=== PATIENT | female | born 1995 | race Caucasian/White ===

== ENCOUNTER 2016-04-10 12:54 | Observation (INO) | payer SELFPAY ==
[~2016-04-10] VITALS: Ht 172.7 cm; Wt 100.0 kg
[2016-04-10] VITALS (7 sets, daily range): BP systolic 116–134; BP diastolic 58–89; PULSE 85–99; RESP 14–20; TEMP 97.9–98; O2SAT 97–100
--- NOTE | 2016-04-10 13:49 | PD ---
HPI Chief Complaint: Chest Pain Time Seen by Provider: 13:48 Travel History International Travel<30 days: No Contact w/Intl Traveler<30days: No Traveled to known affect area: No History of Present Illness HPI 21 year old female presents to the ED for evaluation of 10 day history of palpitations and left-sided chest discomfort, radiating into the left shoulder and fingers of the left hand. Patient states this discomfort is constant. However, she states that she has had a few episodes of accompanying diaphoresis , weakness and shortness of breath over the last few days. Episodes lasting approximately 5 minutes, resolving on their own. No alleviating or exacerbating factors reported. Patient endorses a history of SVT at age 13 years. Denies familial history of long QT, Brugada's or WPW. 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 She is a current smoker, denies illicit drug use. PFSH Past Medical History Asthma: Yes Cardiovascular Problems: Yes (SVT AT AGE 13) Diabetes: Yes (GESTATIONAL) Patient Takes Glucophage: No Diminished Hearing: No Endocrine: Yes (HYPOGLYCEMIA) Gestational Age in Weeks: 14 Immunizations Current: Yes ?: Not LMP: 04/05/16 : 4 Para: 3 Miscarriage: 1 : 0 Past Surgical History Surgical History: No Previous Surgery Section: No Social History Alcohol Use: Yes (social) Tobacco Use: Yes (1/2 pack day) Substance Use: No Allergies-Medications (Allergen,Severity, Reaction): Coded Allergies: Biaxin (Verified Allergy, Mild, HIVES, 04/10/16) *MDRO Multi-Drug Resistant Organism (Verified Adverse Reaction, Unknown, ) MRSA arm 11/2010. MRSA PCR Screen negative 09/30/14. Reported Meds & Prescriptions Reported Meds & Active Scripts Active No Active Prescriptions or Reported Medications Review of Systems Except as stated in HPI: all other systems reviewed are Neg Physical Exam Narrative GENERAL: Well-nourished, well-developed white female in no acute distress. SKIN: Warm and dry. HEAD: Normocephalic. EYES: No scleral icterus. No injection or drainage. NECK: Supple, trachea midline. No JVD or lymphadenopathy. CARDIOVASCULAR: Regular rate and rhythm without murmurs, gallops, or rubs. 2+ DP and radial pulses bilaterally. RESPIRATORY: Breath sounds clear and equal bilaterally. No accessory muscle use. GASTROINTESTINAL: Abdomen soft, non-tender, nondistended. Active bowel sounds. MUSCULOSKELETAL: No cyanosis, or edema. Patient is ambulatory and moves the extremities spontaneously. NEUROLOGICAL: Awake and alert. Cranial nerves II through XII intact. Motor and sensory grossly within normal limits. 5/5 muscle strength in all muscle groups. Normal speech. BACK: Nontender without obvious deformity. No CVA tenderness. Data Data Last Documented VS Vital Signs Date Time Temp Pulse Resp B/P Pulse Ox O2 Delivery O2 Flow Rate FiO2 04/10/16 14:05 127/84 121/78 04/10/16 14:05 18 97 Room Air 04/10/16 13:44 98 04/10/16 12:55 98.0 Orders Electrocardiogram (04/10/16 13:56) Basic Metabolic Panel (Bmp) (04/10/16 13:56) Ckmb (Isoenzyme) Profile (04/10/16 13:56) Complete Blood Count With Diff (04/10/16 13:56) Magnesium (Mg) (04/10/16 13:56) Prothrombin Time / Inr (Pt) (04/10/16 13:56) Act Partial Throm Time (Ptt) (04/10/16 13:56) Troponin I (04/10/16 13:56) Chest, Single Ap (04/10/16 13:56) Ecg Monitoring (04/10/16 13:56) Bilateral Bp Monitoring (04/10/16 13:56) Iv Access Insert/Monitor (04/10/16 13:56) Oximetry (04/10/16 13:56) Aspirin (Aspirin) (04/10/16 14:00) Sodium Chloride 0.9% Flush (Ns Flush) (04/10/16 14:00) Ed Urine Pregnancytest Poc (04/10/16 13:56) Admit Order (Ed Use Only) (04/10/16 15:14) Labs Laboratory Tests Test 04/10/16 14:00 White Blood Count 7.5 TH/MM3 Red Blood Count 4.17 MIL/MM3 Hemoglobin 11.0 GM/DL Hematocrit 33.3 % Mean Corpuscular Volume 79.9 FL Mean Corpuscular Hemoglobin 26.5 PG Mean Corpuscular Hemoglobin 33.1 % Concent Red Cell Distribution Width 15.2 % Platelet Count 241 TH/MM3 Mean Platelet Volume 8.2 FL Neutrophils (%) (Auto) 73.1 % Lymphocytes (%) (Auto) 22.1 % Monocytes (%) (Auto) 4.3 % Eosinophils (%) (Auto) 0.3 % Basophils (%) (Auto) 0.2 % Neutrophils # (Auto) 5.5 TH/MM3 Lymphocytes # (Auto) 1.6 TH/MM3 Monocytes # (Auto) 0.3 TH/MM3 Eosinophils # (Auto) 0.0 TH/MM3 Basophils # (Auto) 0.0 TH/MM3 CBC Comment DIFF FINAL Differential Comment Prothrombin Time 10.8 SEC Prothromb Time International 1.0 RATIO Ratio Activated Partial 26.4 SEC Thromboplast Time Sodium Level 138 MEQ/L Potassium Level 4.0 MEQ/L Chloride Level 106 MEQ/L Carbon Dioxide Level 24.2 MEQ/L Anion Gap 8 MEQ/L Blood Urea Nitrogen 9 MG/DL Creatinine 0.70 MG/DL Estimat Glomerular Filtration 105 ML/MIN Rate Random Glucose 81 MG/DL Calcium Level 10.5 MG/DL Magnesium Level 1.8 MG/DL Total Creatine Kinase 64 U/L Troponin I LESS THAN 0.02 NG/ML MDM Medical Decision Making Medical Screen Exam Complete: Yes Emergency Medical Condition: Yes Interpretation(s) EKG rate 85, sinus rhythm. Normal intervals. Normal axis. No ischemic changes. RSR in V1 and V2, possible ventricular conduction delay. Similar to EKG of 04/04. Reviewed by Dr. Bolden. Differential Diagnosis Anxiety versus arrhythmia versus angina versus atypical chest pain versus ACS versus other Narrative Course 21-year-old female presents to the ED for evaluation of 10 day history of palpitations and chest discomfort. Patient was seen in 04/04, placed on a Halter monitor instructed to follow-up with cardiology. Patient resents for treatment today because she states palpitations continue, now accompanied by left shoulder pain and tingling of the left hand. She also endorses episodic diaphoresis, SOB and weakness, lasting approximately 5 minutes and resolving spontaneously. No alleviating or exacerbating factors reported. Vitals reviewed. Physical exam is reassuring. The patient's mother is on the way with the Holter monitor. Patient was placed on continuous monitoring, labs were drawn. Patient was administered aspirin. EKG rate 85, sinus rhythm, normal interval, normal axis. No ischemic changes, very similar to EKG of 04/04. Chest x-ray normal per radiology read. Cardiac enzymes: Troponin <0.02. CK 64 INR 1.0 Calcium 10. 5 No other concerning abnormalities of the CBC or CMP. Urine test negative. Discussed the patient with Dr. Bolden. Plan to admit to the [facility] for serial cardiac enzymes, EKG and possible stress testing. Patient is amenable to this plan of care. Mother has not arrived with the Holter monitor. Please see chest pain center notes for disposition. Diagnosis Primary Impression: Heart palpitations Additional Impression: Chest pain, atypical Scripts No Active Prescriptions or Reported Meds Malgorzata Terrell Apr 10, 2016 13:48
[2016-04-10] MEDS ORDERED: SODIUM CHLORIDE 0.9% FLUSH 5 ML FLUSH IVF PRN ×2 (14:00→15:45)
[2016-04-10] MEDS ORDERED: ASPIRIN 325 MG TAB PO ONE (14:00)
--- NOTE | 2016-04-10 14:17 | RADRPT ---
EXAM DATE/TIME: 04/10/2016 14:03 [facility] COMPARISON: No previous studies available for comparison. INDICATIONS : Chest pain. MEDICAL HISTORY : None. SURGICAL HISTORY : None. ENCOUNTER: Initial ACUITY: 1 week PAIN SCORE: 8/10 LOCATION: Left upper chest FINDINGS: A single view of the chest demonstrates the lungs to be symmetrically aerated without evidence of mas s, infiltrate or effusion. The cardiomediastinal contours are unremarkable. Osseous structures are intact. CONCLUSION: Normal examination. Lev Bower MD on April 10, 2016 at 14:15 Board Certified Radiologist. This report was verified electronically.
[2016-04-10 14:26] LABS: AUTOMATED NEUTROPHIL # 5.5 TH/MM3 (1.8-7.7); BASOPHIL % 0.2 % (0.0-2.0); EOSINOPHIL % 0.3 % (0.0-4.0); HEMATOCRIT 33.3 % (35.0-46.0); HEMO FLAGS DIFF FINAL; LYMPH % 22.1 % (9.0-44.0); LYMPHOCYTE # 1.6 TH/MM3 (1.0-4.8); MEAN CELL VOLUME 79.9 FL (80.0-100.0); MEAN CORPUSCULAR HEMOGLOBIN 26.5 PG (27.0-34.0); MEAN CORPUSCULAR HGB CONC 33.1 % (32.0-36.0); MONO % 4.3 % (0.0-8.0); NEUT % 73.1 % (16.0-70.0); PLATELET COUNT 241 TH/MM3 (150-450); RED BLOOD COUNT 4.17 MIL/MM3 (4.00-5.30); RED CELL DISTRIBUTION WIDTH 15.2 % (11.6-17.2); WHITE BLOOD COUNT 7.5 TH/MM3 (4.0-11.0)
[2016-04-10 14:38] LABS: ANION GAP 8 MEQ/L (5-15); BICARBONATE 24.2 MEQ/L (21.0-32.0); BLOOD UREA NITROGEN 9 MG/DL (7-18); CHLORIDE 106 MEQ/L (98-107); GLOMERULAR FILTRATION RATE 105 ML/MIN (>89); MAGNESIUM 1.8 MG/DL (1.5-2.5); SODIUM (NA) 138 MEQ/L (136-145)
[2016-04-10 14:56] LABS: CREATINE KINASE 64 U/L (26-192)
[2016-04-10 15:10] LABS: APTT (PATIENT) 26.4 SEC (24.3-30.1); PROTHROMBIN TIME - PATIENT 10.8 SEC (9.8-11.6)
[2016-04-10] MEDS ORDERED: ONDANSETRON HCL 4 MG/2 ML VIAL IV PRN (15:45)
[2016-04-10] MEDS ORDERED: ACETAMINOPHEN/HYDROcodone 325 MG/7.5 MG TAB PO PRN (15:45)
[2016-04-10] MEDS ORDERED: ACETAMINOPHEN 500 MG CPLT PO PRN (15:45)
[2016-04-10 18:13] LABS: CREATINE KINASE 55 U/L (26-192)
[2016-04-10] MEDS: SODIUM CHLORIDE 0.9% FLUSH 5 ML FLUSH IVF SCH (21:00)
[2016-04-10 22:38] LABS: CREATINE KINASE 53 U/L (26-192)
[2016-04-11 04:15] VITALS: BP 105/56; PULSE 67; RESP 20; TEMP 97.6; O2SAT 98
--- NOTE | 2016-04-11 08:22 | MH ---
cc: PRIETO LOPEZ MD DATE OF ADMISSION 04/10/2016 DATE OF 1995 CHIEF COMPLAINT Chest pain and palpitations. HISTORY OF PRESENT ILLNESS The 21-year-old female with a history of SVT at age 13 that presents to the ED via private vehicle complaining of palpitations and chest pain. Patient states that she has had intermittent palpitations for 10 days. She describes them as her heart beating rapidly and will last easily 5-10 seconds when it occurs. She has never actually tried to check her pulse when it occurs. She was seen in this ER on April 04 and was discharged with a Holter monitor and advised to bring it back and follow up with cardiology. She has not brought the Holter monitor back but states her mother is coming from home to bring the Holter monitor back in. She also states that beginning around 2 o'clock in the morning she had with the sensation of her heart beating rapidly, a dull pressure in the center her chest. She also had some tingling radiating down her left arm. She had a dull discomfort in her chest that is still there at this time. No shortness of breath, nausea or diaphoresis. Denies recent illnesses. Denies fevers or chills. Denies . PAST MEDICAL HISTORY SVT at age 13 when she states occurred after smoking something that was laced with a drug. Denies hypertension, hyperlipidemia, diabetes and coronary artery disease. The patient with a history of tobacco abuse. FAMILY HISTORY Her father had a CVA at age 29. She believes he had a IL at age 40. SOCIAL HISTORY The patient does smoke about one-half pack of cigarettes daily for three years. She has occasional alcohol. Denies illicit drugs. 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 She has three children. PAST SURGICAL HISTORY Denies. ALLERGIES BACTRIM AND SHE HAS A HISTORY OF MRSA. CURRENT MEDICATIONS Denies. REVIEW OF SYSTEMS GENERAL: Denies fever or chills. Denies recent illnesses. HEENT: Denies headache, earache, sore throat, difficulty swallowing. CARDIOVASCULAR: Describes the discomfort as mentioned above. Denies diaphoresis. She had sensation of heart beating rapidly intermittently for the last ten days, lasting 5-10 seconds at a time. No syncopal episode. RESPIRATORY: Denies shortness of breath or inspirational chest discomfort. Denies coughing, wheezing or hemoptysis. GASTROINTESTINAL: Denies nausea, vomiting, diarrhea, abdominal pain or blood in the stool. MUSCULOSKELETAL: Denies joint pain or edema. Denies calf pain or edema. NEUROVASCULAR: Denies headache or dizziness. ENDOCRINE: Denies polyuria or polydipsia. HEMATOLOGIC: Denies bruising. SKIN: Denies rash or itching. PHYSICAL EXAMINATION VITAL SIGNS: In the emergency department initially included a blood pressure of 134/71, heart rate 99, respiratory rate 14, pulse oximetry 97% on room air and she was afebrile. The most recent vital signs include a blood pressure of 127/84. GENERAL: The patient is seen in the examination room in no apparent distress. She is very pleasant. She is examined with a female nurse picker tender at the bedside. HEENT: Head is atraumatic, normocephalic. NECK: Supple without lymphadenopathy. Trachea is midline. No JVD or carotid bruits. CARDIOVASCULAR: Regular rate and rhythm without murmurs, rubs, or gallops. LUNGS: Clear to auscultation bilaterally. No wheezes, rhonchi or rales. No use of accessory muscles. No reproducible chest wall discomfort. ABDOMEN: Nontender. Nondistended. Bowel sounds are normal. No rebound or guarding. No obvious pulsatile mass or bruit. No CVA tenderness. Strong femoral pulses bilaterally. MUSCULOSKELETAL: The patient moving upper and lower extremities freely. No joint tenderness or edema. No calf tenderness or edema. No Mirza sign. Strong pulses in the upper and lower extremities. NEUROVASCULAR: The patient is alert and oriented. Cranial nerves II through XII are grossly intact. No focal deficits. Speech is clear. SKIN: No rashes and turgor is normal. LABORATORY DATA Urine test was obtained in the ER and was negative. CBC essentially unremarkable. Coagulation studies are unremarkable. Basic metabolic panel is unremarkable. First of cardiac enzymes normal. IMAGING Single view chest x-ray read by radiologist as normal examination. Initial EKG in the ER is sinus rhythm without any significant ST-segment depression or elevation. Reviewed monitoring and there was no arrhythmias noted. The patient states that she felt her heart was beating rapidly about 1/2 hour prior to my examination and an employee was in the room at the time and stated there was no fast heart beating on the monitor at the time. ASSESSMENT AND PLAN 1. Atypical chest pain: The patient will continue to have cardiac enzymes and EKGs for ruling out purposes. She will be seen by Dr. Lopez of cardiology in the chest pain center. The patient likely will have no further cardiac testing at that point. She will then be discharged home with instructions to follow up with local physician. 2. Palpitations: We will continue to monitor overnight. We will get a TSH. The Holter monitor will be returned and we will get a report from that as well before the patient being discharged. 3. Tobacco abuse: The patient has been counseled on the importance of smoking cessation. 4. The patient is stable at this time. She is agreeable to this plan. DICTATED BY: MERLE Hackett Prieto Lopez M.D. BAB/KK /3:41 PM /8:19 AM
[2016-04-11] MEDS ORDERED: ASPIRIN 325 MG TAB PO SCH (09:00)
[2016-04-11] MEDS: SODIUM CHLORIDE 0.9% FLUSH 5 ML FLUSH IVF SCH (09:00)
--- NOTE | 2016-04-11 09:07 | EKG ---
Date Performed: 04/10/2016 Time Performed: 20:11:38 PTAGE: 21 years EKG: Sinus rhythm WITH SINUS ARRHYTHMIA POSSIBLE RIGHT VENTRICULAR CONDUCTION DELAY BORDERLINE ECG Since PREVIOUS TRACING , no significant change noted PREVIOUS TRACIN04/10/2016 17.08 DOCTOR: Caren Quintero Interpretating Date/Time 04/11/2016 09:06:41
--- NOTE | 2016-04-11 09:08 | EKG ---
Date Performed: 04/10/2016 Time Performed: 17:08:51 PTAGE: 21 years EKG: Sinus rhythm POSSIBLE RIGHT VENTRICULAR CONDUCTION DELAY BORDERLINE ECG PREVIOUS TRACING : 04/10/2016 13.58 Since previous tracing, no significant change noted DOCTOR: Caren Quintero Interpretating Date/Time 04/11/2016 09:07:27
--- NOTE | 2016-04-11 09:09 | EKG ---
Date Performed: 04/10/2016 Time Performed: 13:58:58 PTAGE: 21 years EKG: Sinus rhythm POSSIBLE RIGHT VENTRICULAR CONDUCTION DELAY BORDERLINE ECG Since PREVIOUS TRACING , no significant change noted PREVIOUS TRACIN04/04/2016 13.02 DOCTOR: Caren Quintero Interpretating Date/Time 04/11/2016 09:08:13
--- NOTE | 2016-04-11 09:15 | HHI.DCPOC ---
Discharge Care Plan Diagnosis: (1) Chest pain, atypical (2) Tobacco abuse (3) Heart palpitations Goals to Promote Your Health * To prevent worsening of your condition and complications * To maintain your health at the optimal level Directions to Meet Your Goals Take your medications as prescribed Follow your dietary instruction Follow activity as directed Keep your appointments as scheduled Take your immunizations and boosters as scheduled If your symptoms worsen call your PCP, if no PCP go to Urgent Care Center or Emergency Room Smoking is Dangerous to Your Health. Avoid second hand smoke Call the 24-hour hour crisis hotline for domestic abuse at Ang Mendoza Apr 11, 2016 09:15
== END 2016-04-11 11:44 | disposition home or self-care (01) ==
LOC: NEPA 12:54 → NEDA 15:16 → NEPHCDU 16:35
PROVIDERS: ADMIT Internal Medicine Cardiovascular Disease; ATTEND Internal Medicine Cardiovascular Disease
DX: R07.89 Other chest pain (principal); R00.2 Palpitations; F17.200 Nicotine dependence, unspecified, uncomplicated; R06.02 Shortness of breath; R53.1 Weakness; I47.1 Supraventricular tachycardia; J45.909 Unspecified asthma, uncomplicated; E16.2 Hypoglycemia, unspecified
CPT/HCPCS: 71010; 80048; 82550; 83735; 84443; 84484; 84703; 85025; 85610; 85730; 93005; 99285; G0378